=== PATIENT | male | born 1960 | race American Indian/Alaskan Native ===

== ENCOUNTER → 2017-08-31 | Outpatient (CLI) | payer OTHER ==
[2017-08-31 15:16] LABS: HCT 52.2 % (39.0-53.0); HGB 15.6 gm/dL (13.0-17.5); Hypochromasia Marked; MCH 27.2 pg (25.0-35.0); MCHC 29.9 g/dL (31.0-37.0); Mean Platelet Volume 7.7; Platelet Count 233 k/uL (150-450); RBC 5.73 m/uL (4.30-5.90); RDW 15.1 % (11.5-15.5); WBC 5.4 k/uL (3.8-10.6)
[2017-08-31 15:25] LABS: Albumin 3.7 g/dL (3.5-5.0); Calcium 9.3 mg/dL (8.4-10.2); Potassium 5.2 mmol/L (3.5-5.1); Total Bilirubin 0.3 mg/dL (0.2-1.3); Total Protein 6.7 g/dL (6.3-8.2)
[2017-08-31 22:10] LABS: Hemoglobin A1C 7.5 % (4.0-6.0)
== END | disposition home or self-care (01) ==
LOC: LABWHC1 14:42
PROVIDERS: ATTEND Surgery Vascular Surgery
DX: E13.621 Other specified diabetes mellitus with foot ulcer (principal); E63.8 Other specified nutritional deficiencies
CPT/HCPCS: 36415; 80053; 83036; 84134; 85027

== ENCOUNTER 2019-09-30 15:21 | Emergency (ER) | payer OTHER ==
--- NOTE | 2019-09-30 16:37 | ED ---
General Adult HPI - General Chief complaint: Recheck/Abnormal Lab/Rx Stated complaint: L leg wound Time Seen by Provider: 09/30/19 15:36 Source: patient, RN notes reviewed Mode of arrival: ambulatory Limitations: no limitations - History of Present Illness Initial comments: 59-year-old male with a couple treated past medical history including atrial fib rillation, heart failure, hypertension, diabetes mellitus, [place] presents to the emergency department for a chief complaint of bilateral lower extremities swelling. Patient states he has had swelling and redness in his extremities for years. States in the past month and a half he has started to get a sore on his left calf. Daughter noticed a wound on the patient's calf on the left. Daughter is who wanted patient evaluated. Patient denies fevers.Patient has no other complaints at this time including shortness of breath, chest pain, abdominal pain, nausea or vomiting, headache, or visual changes. - Related Data Home Medications Medication Instructions Recorded Confirmed Amiodarone [Cordarone] 200 mg PO DAILY 08/24/17 12/28/17 B12/Levomefolate Calcium/B-6 1 each PO DAILY 08/24/17 12/28/17 [Foltx Tablet] Carvedilol [Coreg] 12.5 mg PO BID 08/24/17 12/28/17 Clopidogrel [Plavix] 75 mg PO DAILY 08/24/17 12/28/17 D3/Folic Acid/Collagen,Hydroly 1 each PO DAILY 08/24/17 12/28/17 [Cyfolex Capsule] Ergocalciferol (Vitamin D2) 50,000 unit PO DAILY 08/24/17 12/28/17 [Vitamin D2] Fenofibrate,Micronized 134 mg PO DAILY 08/24/17 12/28/17 [Fenofibrate] Ferrous Sulfate [Feosol] 325 mg PO DAILY 08/24/17 12/28/17 Furosemide [Lasix] 40 mg PO BID 08/24/17 12/28/17 Insulin Aspart Protam & Aspart 0 unit SQ BID-W/MEALS 08/24/17 12/28/17 [NovoLOG MIX 70-30 Flexpen] Isosorbide Mononitrate [Isosorbide 30 mg PO DAILY 08/24/17 12/28/17 Mononitrate ER] Levothyroxine Sodium [Synthroid] 100 mcg PO DAILY 08/24/17 12/28/17 Lisinopril [Zestril] 20 mg PO DAILY 08/24/17 12/28/17 Seymour-3 Fatty Acids/Fish Oil [Fish 1 tab PO DAILY 08/24/17 12/28/17 Oil 1,000 mg Softgel] Potassium Chloride ER [K-Dur 20] 20 meq PO DAILY 08/24/17 12/28/17 Spironolactone [Aldactone] 25 mg PO DAILY 08/24/17 12/28/17 metFORMIN HCL [Glucophage] 1,000 mg PO BID 08/24/17 12/28/17 Ipratropium/Albuterol Sulfate 1 puff INHALATION QID 11/23/17 12/28/17 [Combivent Respimat Inhaler] Lisinopril 30 mg PO DAILY 11/23/17 12/28/17 Nitroglycerin 0.4 mg SL DIRECTED 11/23/17 12/28/17 Previous Rx's Medication Instructions Recorded Cephalexin [Keflex] 500 mg PO Q6HR 10 Days #40 cap 09/30/19 Allergies Allergy/AdvReac Type Severity Reaction Status Date / Time No Known Allergies Allergy Verified 09/30/19 15:35 Review of Systems ROS Statement: Those systems with pertinent positive or pertinent negative responses have been documented in the HPI. ROS Other: All systems not noted in ROS Statement are negative. 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 , USES CANE. Last Myocardial Infarction Date:: 2007 History of Any Multi-Drug Resistant Organisms: None Reported Past Surgical History: Adenoidectomy, Appendectomy, Coronary Bypass/CABG, Pacemaker, Tonsillectomy Additional Past Surgical History / Comment(s): KNEE SURGERY (15 YRS OLD), FOOT SURGERY (17 YRS OLD), NOSE FX REDUCTION (25 YRS OLD), CABG (NOV 2011), AICD [facility] (12/24/2011)., SURGERY SEPTEMBER 2017 ON RIGHT LEG AFTER INJURY. Past Anesthesia/Blood Transfusion Reactions: No Reported Reaction Type of Cardiac Device: AICD Device Placement Date:: 12-24-2011 Past Psychological History: Anxiety Smoking Status: Current every day smoker Past Alcohol Use History: None Reported Past Drug Use History: None Reported - Past Family History Father Family Medical History: Coronary Artery Disease (CAD), CVA/TIA, Diabetes Mellitus, Vascular Disorder Mother Family Medical History: Congestive Heart Failure (CHF), Coronary Artery Disease (CAD), Diabetes Mellitus, Renal Disease General Exam Limitations: no limitations General appearance: alert, in no apparent distress Head exam: Present: atraumatic, normocephalic, normal inspection Eye exam: Present: normal appearance, PERRL, EOMI. Absent: scleral icterus, conjunctival injection ENT exam: Present: normal exam, mucous membranes moist Neck exam: Present: normal inspection, full ROM. Absent: tenderness, meningismus, lymphadenopathy Respiratory exam: Present: normal lung sounds bilaterally. Absent: respiratory distress, wheezes, rales, rhonchi, stridor Cardiovascular Exam: Present: regular rate, normal rhythm, normal heart sounds. Absent: systolic murmur, diastolic murmur, rubs, gallop, clicks GI/Abdominal exam: Present: soft, normal bowel sounds. Absent: distended, tenderness, guarding, rebound, rigid Extremities exam: Present: normal capillary refill (Capillary refill less than 2 seconds in LE bilaterally. DP and PT pulses evident on Doppler bilaterally), other (patient has erythematous lower extremities with vesicles noted as well as edema. Small wound noted on the medial aspect of the left leg.) Course Vital Signs 09/30/19 09/30/19 09/30/19 15:31 18:46 19:16 Temperature 98 F Pulse Rate 61 62 Respiratory 18 18 Rate Blood Pressure 118/66 138/72 O2 Sat by Pulse 91 L 88 L 95 Oximetry EKG Findings - EKG Comments: EKG Findings:: Normal sinus rhythm, ventricular rate 61, NC interval 170, QTc 461 Medical Decision Making - Medical Decision Making 59-year-old male with a complicated past medical history presents for bilateral lower extremity swelling for years however now there are sores forming on his left calf. There is about 1 sore to 2 cm by 2 cm. Patient states he has had swelling in his lower extremities for 3 months. HPI and physical exam as documented. CBC shows he will concentration, patient was given a liter of fluids. CMP is unremarkable, evidence of dehydration. Chest x-ray shows mild s ubsegmental atelectasis left lower lobe. No heart failure seen. At this time patient was given a liter of fluids given evidence of dehydration on laboratory evaluation. Ultrasound of the left lower extremity shows no evidence of DVT. X-ray of the left tib-fib shows soft tissue swelling and subcutaneous edema without fracture seen. At this time patient reports his discoloration erythema and swelling has been going on for years however the ulceration is new on the left calf. He has seen his food preparation kitchen aide for this complaint and was told it was not fluid overload and was chronic. He will be covered with antibiotics for the wound and I discussed he will likely have to follow up with primary care for wound care referral. He will return here for any worsening symptoms.. - Lab Data Result diagrams: 09/30/19 16:15 09/30/19 16:15 Lab Results 09/30/19 09/30/19 09/30/19 Range/Units 16:15 16:15 16:15 WBC 5.6 (3.8-10.6) k/uL RBC 6.38 H (4.30-5.90) m/uL Hgb 18.4 H (13.0-17.5) gm/dL Hct 60.0 H* (39.0-53.0) % MCV 94.1 (80.0-100.0) fL MCH 28.8 (25.0-35.0) pg MCHC 30.6 L (31.0-37.0) g/dL RDW 15.8 H (11.5-15.5) % Plt Count 172 (150-450) k/uL Neutrophils % (Manual) 61 % Lymphocytes % (Manual) 27 % Monocytes % (Manual) 7 % Eosinophils % (Manual) 5 % Neutrophils # (Manual) 3.42 (1.3-7.7) k/uL Lymphocytes # (Manual) 1.51 (1.0-4.8) k/uL Monocytes # (Manual) 0.39 (0-1.0) k/uL Eosinophils # (Manual) 0.28 (0-0.7) k/uL Nucleated RBCs 0 (0-0) /100 WBC Manual Slide Review Performed Hypochromasia Marked PT (9.0-12.0) sec INR (<1.2) APTT (22.0-30.0) sec Sodium 135 L (137-145) mmol/L Potassium 5.0 (3.5-5.1) mmol/L Chloride 100 (98-107) mmol/L Carbon Dioxide 29 (22-30) mmol/L Anion Gap 6 mmol/L BUN 34 H (9-20) mg/dL Creatinine 1.27 H (0.66-1.25) mg/dL Est GFR (CKD-EPI)AfAm 70 (>60 ml/min/1.73 sqM) Est GFR (CKD-EPI)NonAf 61 (>60 ml/min/1.73 sqM) Glucose 196 H (74-99) mg/dL Plasma Lactic Acid [place] 0.9 (0.7-2.0) mmol/L Calcium 9.1 (8.4-10.2) mg/dL Total Bilirubin 0.5 (0.2-1.3) mg/dL AST 35 (17-59) U/L ALT 14 (4-49) U/L Alkaline Phosphatase 99 (38-126) U/L Troponin I (0.000-0.034) ng/mL NT-Pro-B Natriuret Pep pg/mL Total Protein 7.2 (6.3-8.2) g/dL Albumin 3.9 (3.5-5.0) g/dL 09/30/19 09/30/19 09/30/19 Range/Units 16:15 17:08 17:57 WBC (3.8-10.6) k/uL RBC (4.30-5.90) m/uL Hgb (13.0-17.5) gm/dL Hct (39.0-53.0) % MCV (80.0-100.0) fL MCH (25.0-35.0) pg MCHC (31.0-37.0) g/dL RDW (11.5-15.5) % Plt Count (150-450) k/uL Neutrophils % (Manual) % Lymphocytes % (Manual) % Monocytes % (Manual) % Eosinophils % (Manual) % Neutrophils # (Manual) (1.3-7.7) k/uL Lymphocytes # (Manual) (1.0-4.8) k/uL Monocytes # (Manual) (0-1.0) k/uL Eosinophils # (Manual) (0-0.7) k/uL Nucleated RBCs (0-0) /100 WBC Manual Slide Review Hypochromasia PT 11.1 (9.0-12.0) sec INR 1.1 (<1.2) APTT 23.5 (22.0-30.0) sec Sodium (137-145) mmol/L Potassium (3.5-5.1) mmol/L Chloride (98-107) mmol/L Carbon Dioxide (22-30) mmol/L Anion Gap mmol/L BUN (9-20) mg/dL Creatinine (0.66-1.25) mg/dL Est GFR (CKD-EPI)AfAm (>60 ml/min/1.73 sqM) Est GFR (CKD-EPI)NonAf (>60 ml/min/1.73 sqM) Glucose (74-99) mg/dL Plasma Lactic Acid [place] (0.7-2.0) mmol/L Calcium (8.4-10.2) mg/dL Total Bilirubin (0.2-1.3) mg/dL AST (17-59) U/L ALT (4-49) U/L Alkaline Phosphatase (38-126) U/L Troponin I <0.012 (0.000-0.034) ng/mL NT-Pro-B Natriuret Pep 370 pg/mL Total Protein (6.3-8.2) g/dL Albumin (3.5-5.0) g/dL Disposition Clinical Impression: Dehydration, Diabetic ulcer of lower leg Disposition: HOME SELF-CARE Condition: Good Instructions (If sedation given, give patient instructions): Chronic Wounds (ED) Additional Instructions: Please follow up with primary care in 1-2 days for possible wound care referral. Take antibiotic as directed. Return here to the emergency room for any worsening symptoms or fevers. Prescriptions: Cephalexin [Keflex] 500 mg PO Q6HR 10 Days #40 cap Is patient prescribed a controlled substance at d/c from ED?: No Referrals: Kris Mars MD [Primary Care Provider] - 1-2 days Time of Disposition: 19:51
[2019-09-30 16:40] LABS: Albumin 3.9 g/dL (3.5-5.0); Calcium 9.1 mg/dL (8.4-10.2); Total Bilirubin 0.5 mg/dL (0.2-1.3); Total Protein 7.2 g/dL (6.3-8.2)
[2019-09-30 16:44] LABS: HGB 18.4 gm/dL (13.0-17.5); Hypochromasia Marked; MCH 28.8 pg (25.0-35.0); MCHC 30.6 g/dL (31.0-37.0); MCV 94.1 fL (80.0-100.0); Mean Platelet Volume 7.6; Platelet Count 172 k/uL (150-450); RBC 6.38 m/uL (4.30-5.90); RDW 15.8 % (11.5-15.5); WBC 5.6 k/uL (3.8-10.6)
--- NOTE | 2019-09-30 16:55 | US ---
EXAMINATION TYPE: US venous doppler duplex LE LT DATE OF EXAM: 09/30/2019 4:41 PM COMPARISON: NONE CLINICAL HISTORY: edema. SIDE PERFORMED: Left TECHNIQUE: The lower extremity deep venous system is examined utilizing real time linear array sonog barbara with graded compression, doppler sonography and color-flow sonography. VESSELS IMAGED: External Iliac Vein (EIV) Common Femoral Vein Deep Femoral Vein Greater Saphenous Vein * Femoral Vein Popliteal Vein Small Saphenous Vein * Proximal Calf Veins (* superficial vessels) Left Leg: Negative for DVT IMPRESSION: No evidence of deep vein thrombosis in the left leg.
[2019-09-30 17:26] LABS: Eosinophils # (M) 0.28 k/uL (0-0.7); Lymphocytes # (M) 1.51 k/uL (1.0-4.8); Monocytes # (M) 0.39 k/uL (0-1.0); Neutrophils # (M) 3.42 k/uL (1.3-7.7); Neutrophils % (M) 61 %; Nucleated Red Blood Cells 0 /100 WBC (0-0); Total Cells Counted 100
[2019-09-30 17:27] LABS: INR 1.1 (<1.2); Partial Thromboplastin Time 23.5 sec (22.0-30.0)
[2019-09-30 17:35] LABS: Prothrombin Time 11.1 sec (9.0-12.0)
--- NOTE | 2019-09-30 18:03 | XR ---
EXAMINATION TYPE: XR chest 2V DATE OF EXAM: 09/30/2019 COMPARISON: NONE HISTORY: Fluid overload TECHNIQUE: 2 views FINDINGS: Heart is normal. There is some linear density in the left lower lobe. The other lung gonzalez are clear. There are sternal wires. There is left axillary pacemaker. There is no pleural effusion. Bony thorax is intact. IMPRESSION: There is mild subsegmental atelectasis left lower lobe. No heart failure seen.
--- NOTE | 2019-09-30 18:04 | XR ---
EXAMINATION TYPE: XR tibia fibula LT DATE OF EXAM: 09/30/2019 COMPARISON: NONE HISTORY: Pain TECHNIQUE: 4 views FINDINGS: The knee joint and ankle joint appear anatomic. I see no fracture. There is subcutaneous ed kellie around the lower leg. IMPRESSION: Soft tissue swelling and subcutaneous edema. No fracture seen. Osteoarthritic joint space narrowing in the medial left knee.
[2019-09-30] MEDS ORDERED: SODIUM CHLORIDE 0.9% 1,000 ML IV STA (18:10)
[2019-09-30 20:06] VITALS: BP 147/78; PULSE 64; RESP 19; TEMP 98.1
== END 2019-09-30 20:14 | disposition home or self-care (01) ==
LOC: EC 15:21
DX: E11.622 Type 2 diabetes mellitus with other skin ulcer (principal); E86.0 Dehydration; J98.11 Atelectasis; I48.91 Unspecified atrial fibrillation; I25.2 Old myocardial infarction; I25.10 Atherosclerotic heart disease of native coronary artery without angina pectoris; I11.0 Hypertensive heart disease with heart failure; G47.30 Sleep apnea, unspecified; E07.9 Disorder of thyroid, unspecified; F17.200 Nicotine dependence, unspecified, uncomplicated; Z79.02 Long term (current) use of antithrombotics/antiplatelets; Z79.4 Long term (current) use of insulin; Z79.899 Other long term (current) drug therapy; Z79.890 Hormone replacement therapy; Z95.0 Presence of cardiac pacemaker; Z95.1 Presence of aortocoronary bypass graft; Z86.73 Personal history of transient ischemic attack (TIA), and cerebral infarction without residual deficits
CPT/HCPCS: 36415; 71046; 80053; 83605; 83880; 84484; 85025; 85610; 85730; 93005; 96360; 96361; 99284

== ENCOUNTER 2020-07-10 07:15 | Day surgery (SDC) | payer OTHER ==
[2020-07-05 12:00] VITALS: BMI 46.5
[~2020-07-10 07:15] MED LIST: LACTATED RINGERS 1,000 ML IV SCH
[2020-07-10] MEDS ORDERED: LIDOCAINE 1% (10MG/ML) FOR IV START INTRADERMA ONE (07:58)
[2020-07-10 08:02] LABS: Glucose,Whole Blood 142 mg/dL (75-99)
[2020-07-10 08:04] VITALS: TEMP 98.4
[2020-07-10] MEDS ORDERED: LIDOCAINE 1% INJ 10MG/ML (20 ML MDV) ONE (08:25)
[2020-07-10] MEDS ORDERED: fentaNYL (PF) 50 MCG/ML 2 ML AMP ONE (08:25)
[2020-07-10] MEDS ORDERED: MIDAZOLAM 2 MG/2 ML VIAL ONE (08:25)
[2020-07-10] MEDS ORDERED: PROPOFOL 10 MG/ML 20 ML VIAL IV ONE (08:25)
--- NOTE | 2020-07-10 09:03 | P.PCN ---
Date of Procedure: 07/10/20 Description of Procedure: BRIEF HISTORY: Patient is a 59-year-old male who presented for outpatient colonoscopy for evaluation of history of colon polyps. The patient's last colonoscopy was in 2014 with diverticulosis and polyps at that time. He denies any change in bowel habits. He does report a family history of colon cancer in grandparents and siblings. PROCEDURE PERFORMED: Colonoscopy with polypectomy. PREOPERATIVE DIAGNOSIS: Personal history of colon polyps, last colonoscopy 2014 with polypectomy, family history of colon cancer. ESTIMATED BLOOD LOSS: Minimal. IV sedation per Anesthesia. PROCEDURE: After informed consent was obtained, the patient, was brought into the endoscopy unit. IV sedation was administered by Anesthesia under continuous monitoring. Digital rectal examination was normal. Initially the Olympus CF-190 flexible video colonoscope was then inserted in the rectum, gradually advanced into the cecum without any difficulty. Careful examination was performed as the scope was gradually being withdrawn. Ileocecal valve and the appendiceal orifice were v isualized and appeared normal. Prep was excellent. Mucosa of the cecum, ascending colon, transverse colon, descending colon, sigmoid colon, and rectum appeared normal, with a few scattered sigmoid diverticula noted. Sessile polyps measuring in size from 3 mm to 6 mm removed from the cecum, ascending colon, transverse colon and descending colon 2 with cold snare polypectomy. Retroflexion was performed in the rectum and no lesions were seen. The patient tolerated the procedure well. IMPRESSION: 6 polyps removed with cold snare polypectomy from the cecum, ascending colon, transverse colon and descending colon 2. Mild sigmoid diverticulosis. RECOMMENDATIONS: Findings of this examination were discussed with the patient and his granddaughter. Okay to resume diet. Okay to resume medications. Await pathology from polypectomies. Recommend repeat colonoscopy in 5 years for colon polyps and family history of colon cancer pending pathology from polypectomy.
[2020-07-10 09:13] VITALS: RESP 22
[2020-07-10 09:28] LABS: Glucose,Whole Blood 134 mg/dL (75-99)
[2020-07-10 09:34] VITALS: BP 146/88; PULSE 70
== END 2020-07-10 10:05 | disposition home or self-care (01) ==
LOC: ORWHC2ENDO 07:15
PROVIDERS: ATTEND Internal Medicine
DX: Z12.11 Encounter for screening for malignant neoplasm of colon (principal); D12.2 Benign neoplasm of ascending colon; D12.0 Benign neoplasm of cecum; D12.3 Benign neoplasm of transverse colon; K63.5 Polyp of colon; K57.30 Diverticulosis of large intestine without perforation or abscess without bleeding; E11.9 Type 2 diabetes mellitus without complications; K08.89 Other specified disorders of teeth and supporting structures; I25.2 Old myocardial infarction; I25.10 Atherosclerotic heart disease of native coronary artery without angina pectoris; I11.0 Hypertensive heart disease with heart failure; I50.9 Heart failure, unspecified; I48.91 Unspecified atrial fibrillation; G47.33 Obstructive sleep apnea (adult) (pediatric); E07.9 Disorder of thyroid, unspecified; E66.01 Morbid (severe) obesity due to excess calories; Z86.010 Personal history of colon polyps; Z80.0 Family history of malignant neoplasm of digestive organs; Z72.0 Tobacco use; Z79.899 Other long term (current) drug therapy; Z79.890 Hormone replacement therapy; Z79.4 Long term (current) use of insulin; Z90.89 Acquired absence of other organs; Z90.49 Acquired absence of other specified parts of digestive tract; Z95.1 Presence of aortocoronary bypass graft; Z98.890 Other specified postprocedural states; Z97.2 Presence of dental prosthetic device (complete) (partial); Z95.810 Presence of automatic (implantable) cardiac defibrillator; Z68.42 Body mass index [BMI] 45.0-49.9, adult; Z86.73 Personal history of transient ischemic attack (TIA), and cerebral infarction without residual deficits
CPT/HCPCS: 88305; 45385; J2250; J2001; J3010; J2704